=== PATIENT | female | born 1980 | race Caucasian/White ===

== ENCOUNTER 2022-07-25 11:48 | Emergency (ER) | payer OTHER, SELFPAY ==
--- NOTE | ~2022-07-25 | XR_ITS ---
XR toe 5th RT min 2V DATE: 07/25/2022 12:27 INDICATION: Right fifth toe pain following injury today TECHNIQUE: 3 views COMPARISON: None FINDINGS: There is a linear oblique fracture through the proximal shaft of the proximal phalanx of th e fifth toe with no significant displacement, minimal apex anteromedial angulation. No other fracture or dislocation. IMPRESSION: Fracture proximal phalanx Reviewed, dictated and finalized at location A. [employer] IMPRESSION: Fracture proximal phalanx
[2022-07-25 12:13] VITALS: BP 122/79; PULSE 85; RESP 16; TEMP 36.1; O2SAT 99
--- NOTE | 2022-07-25 13:38 | ED.LOWEXIN ---
HPI - Extremity Injury (Lower) General Chief Complaint: Extremity Injury, Lower Stated Complaint: right 5th toe digit Source: patient Mode of arrival: ambulatory Limitations: no limitations History of Present Illness HPI Narrative: 40-year-old female presents to [facility] with complaints of pain, swelling bruising to right 5th toe since 11:15 AM today. Patient reports that her daughter was following her when she turned around and jammed her right foot into a door frame at 11:15 a.m. today. Patient has not tried taking any [id number] medications for symptoms. Patient reported increased pain with ambulation and range of motion. Onset (ago): hour(s) (2) Injury: Right: toes Place: home Other symptoms: none Related Data Home Medications Medication Instructions Recorded Confirmed Xiao 07/25/22 Chewable Probiotic 07/25/22 cholecalciferol (vitamin D3) 07/25/22 gabapentin 300 mg capsule mg 07/25/22 mecobalamin (vitamin B12) 07/25/22 Allergies Allergy/AdvReac Type Severity Reaction Status Date / Time No Known Allergies Allergy Unverified 02/16/14 10:16 Review of Systems Constitutional: Constitutional: Denies chills, Denies fatigue, Denies fever(s) and Denies weakness ENT: Denies vertigo and Denies dizziness Respiratory: Respiratory: Denies cough, Denies dyspnea and Denies wheezing Gastrointestinal: Gastrointestinal: Denies diarrhea, Denies nausea and Denies vomiting Musculoskeletal: Musculoskeletal: Reports arthralgias and Reports joint swelling Comments: Pain, swelling and bruising to right 5th toe Integumentary/Breasts: Skin/Breast: Denies rash PMFSH Comments At time of signature, I agree with nursing past medical, surgical, social and family history. There is no relevant family history pertinent to the presenting complaint. Exam Const: General: healthy appearing and no acute distress Nutritional Appearance: well nourished Orientation/consciousness: patient oriented x3 Limitations: no limitations Neck: Neck: normal visual inspection Resp: Effort & Inspection: normal respiratory effort Auscultation: clear to auscultation bilaterally Cardio: Rate: regular rate Rhythm: regular rhythm Heart sounds: no murmurs Skin: General skin exam: normal color Rashes: no rashes Neuro: General: patient oriented x3 Speech: normal speech Extrem: Other: pain mild bruising and mild swelling noted to right 5th toe, there is increased pain noted with range of motion and palpation to right 5th toe Psych: Affect: normal affect Attitude: cooperative Course Course Level of Care: Express Care Visit Vital Signs Vital signs: Vital Signs Temperature 36.1 C L 07/25/22 12:13 Pulse Rate 85 07/25/22 12:13 Respiratory Rate 16 07/25/22 12:13 Blood Pressure 122/79 07/25/22 12:13 Pulse Oximetry 99 07/25/22 12:13 Oxygen Delivery Room Air 07/25/22 12:13 Temperature 36.1 C L 07/25/22 12:13 Pulse Rate 85 07/25/22 12:13 Respiratory Rate 16 07/25/22 12:13 Blood Pressure 122/79 07/25/22 12:13 Pulse Oximetry 99 07/25/22 12:13 Oxygen Delivery Room Air 07/25/22 12:13 MDM - Extremity Injury (Lower) MDM Narrative Medical decision making narrative: discussed x-ray results with patient. She agrees to call orthopedics tomorrow for an appointment. Right 5th toe was john-taped and postop shoe was applied to right foot. Rice therapy discussed with patient. Patient agrees to alternate Motrin and Tylenol as needed. Differential Diagnosis Differential diagnosis: Likely other ( Contusion, avulsion, abrasion) Imaging Data Radiologist's impression: right 5th toe x-ray -- fracture proximal phalanx per radiologist Critical Care Time Critical Care Time Critical Care Time: No Discharge Plan Discharge Clinical Impression: Fracture of toe of right foot Patient Disposition: Home, Self-Care Condition: Stable Instructions: Toe Fracture (ED) Addit
== END 2022-07-25 13:48 | disposition home or self-care (01) ==
PROVIDERS: Emergency Provider Nurse Practitioner Family
DX: S82.241A Displaced spiral fracture of shaft of right tibia, initial encounter for closed fracture (principal); W22.09XA Striking against other stationary object, initial encounter
CPT/HCPCS: 73660; 99214; G0463

== ENCOUNTER 2022-10-09 12:26 | Emergency (ER) | payer OTHER, SELFPAY ==
[2022-10-09] VITALS (13 sets, daily range): BP systolic 118–151; BP diastolic 66–89; PULSE 69–98; RESP 18–20; TEMP 36.4; O2SAT 96–100
--- NOTE | ~2022-10-09 | CT_ITS ---
EXAMINATION: CT brain wo con DATE: 10/09/2022 17:26 INDICATION: syncope . TECHNIQUE: Computed tomography (CT) of the head was performed without intravenous contrast. The mA wa s adjusted according to patient size. Iterative reconstruction technique was employed. The dose-lengt h product was 605.33 mGy-cm. COMPARISON: None. FINDINGS: No acute intracranial hemorrhage or extra-axial fluid collection. No hydrocephalus, mass, or herniation. No acute ischemic infarct. Unremarkable dural venous sinus attenuation. No acute osseous abnormality. The aerated spaces are clear. IMPRESSION: No acute intracranial process. Reviewed, dictated and finalized at location K.
--- NOTE | 2022-10-09 12:34 | ECG_ITS ---
Measurements Intervals [place] Rate: 94 P: 56 SD: 126 QRS: 24 QRSD: 86 T: 33 QT: 329 QTc: 413 Interpretive Statements SINUS RHYTHM NO PREVIOUS ECG AVAILABLE FOR COMPARISON Electronically Signed On 10-09-2022 15:49:58 CDT by Lex Hernandez M.D.
[2022-10-09 12:51] LABS: Basophils Percent Auto 0.3 % (0.2-1.2); Eosinophils Absolute Auto 0.1 K/mm3 (0-0.3); Eosinophils Percent Auto 0.7 % (0-4.4); Hematocrit 40.6 % (37.0-47.0); Hemoglobin 13.6 g/dL (12.0-15.0); Immature Granulocyte Absolute 0.03 K/mm3 (0.00-0.031); Immature Granulocyte Percent A 0.3 % (0-0.5); Lymphocytes Percent Auto 42.3 % (18.3-44.2); Mean Corpuscular HGB Conc 33.5 g/dl (32-36); Mean Corpuscular Hemoglobin 28.6 pg (26-34); Mean Corpuscular Volume 85.3 fl (80-100); Mean Platelet Volume 10.3 fl (7.4-10.4); Monocytes Absolute Auto 0.6 K/mm3 (0.1-0.6); Monocytes Percent Auto 6.7 % (2.6-8.5); Neutrophils Absolute Auto 4.3 K/mm3 (1.3-6.7); Neutrophils Percent Auto 49.7 % (45.5-73.1); Platelet Count Result 275 k/mm3 (150-375); Red Blood Count 4.76 M/mm3 (4.2-5.4); White Blood Count 8.8 K/mm3 (4.5-10.0)
[2022-10-09 13:09] LABS: Alanine Aminotransferase 29 U/L (6-35); Albumin Level 4.4 g/dL (3.5-5.1); Alkaline Phosphatase 105 U/L (38-126); Anion Gap 11 mmol/L (8-16); Aspartate Amino Transferase 33 U/L (14-36); Bilirubin,Total 0.9 mg/dL (0.2-1.3); Blood Urea Nitrogen 9 mg/dL (7-17); Calcium 8.9 mg/dL (8.4-10.2); Carbon Dioxide 21 mmol/L (22-30); Chloride 108 mmol/L (98-107); Estimated CRCL calculation 124 ml/min; Estimated Glomerular Filt Rate > 60; Glucose 97 mg/dL (65-110); Sodium 140 mmol/L (137-145)
[2022-10-09 14:39] LABS: Potassium 3.8 mmol/L (3.4-5.0)
[2022-10-09 18:28] LABS: Appearance Urine Cloudy (Clear); Bacteria Urine 1+ /hpf; Bilirubin Urine 1+ (Negative); Blood Urine 1+ (Negative); Color Urine Dark Yellow (Yellow); Glucose Urine UA Negative (Negative); Ketones Urine Trace mg/dL (Negative); Leukocyte Esterase Ur 2+ LEU/UL (Negative); Nitrate Urine Negative (Negative); Protein Urine Trace mg/dL (Negative); Specific Grav Ur 1.024 (1.001-1.035); Squamous Epithelial Cell Urine Moderate /hpf (Few); Urobilinogen Urine 0.2 mg/dL (<2.0); WBC Urine 21-50 /hpf
[2022-10-09 18:29] LABS: Add Urine Microscopic? YES
[2022-10-09 18:50] LABS: Troponin I < 0.012 ng/mL (0.000-0.034)
--- NOTE | 2022-10-09 18:56 | ED.SYNCOPE ---
HPI - Syncope General Chief Complaint: Syncope Stated Complaint: syncopal episode last night Time Seen by Provider: 10/09/22 16:30 Source: patient and family Mode of arrival: ambulatory Limitations: no limitations History of Present Illness HPI narrative: 42-year-old otherwise healthy female with complaints of dizzy spell yesterday patient states that while she was in the shower felt faint afterwards, she was unable to keep her balance she states that her checked her blood pressure in both arms it was low compared to her normal, somehow dragged herself to the bed and slept till 12:00 this afternoon. She denies having chest pain or palpitations or shortness of breath however she has been having pain in the right side of her jaw for last 4 to 5 days has seen a dentist for that. No previous history of fainting spells. She denies any abdominal pain, nausea or vomiting or diarrhea. No blood per rectum Related Data Home Medications Medication Instructions Recorded Confirmed Xiao 07/25/22 Chewable Probiotic 07/25/22 cholecalciferol (vitamin D3) 07/25/22 gabapentin 300 mg capsule mg 07/25/22 mecobalamin (vitamin B12) 07/25/22 Allergies Allergy/AdvReac Type Severity Reaction Status Date / Time No Known Allergies Allergy Unverified 10/09/22 12:27 Review of Systems Review of Systems: All systems reviewed & are unremarkable except as noted in HPI and below Constitutional: Constitutional: Reports no additional constitutional complaints Eyes: Eyes: Reports no additional eye complaints ENT: Reports system reviewed and no additional complaints, except as documented Cardiovascular: Cardiovascular: Reports no additional cardiovascular complaints Respiratory: Respiratory: Reports no additional respiratory complaints Genitourinary: Genitourinary: Reports no additional female genitourinary complaints Musculoskeletal: Musculoskeletal: Reports no additional musculoskeletal complaints Integumentary/Breasts: Skin/Breast: Reports system reviewed and no additional complaints, except as docu Neurologic: Reports system reviewed and no additional complaints, except as documented Exam Narrative: GENERAL: Well-appearing, well-nourished, and in no acute distress. HEAD: Normocephalic, atraumatic. EYES: PERRLA and EOMI. ENT: Nares clear, no rhinorrhea or epistaxis. Mucous membranes moist. NECK: Supple. CHEST: Clear to auscultation. No respiratory distress. HEART: Regular rate and rhythm. No murmur heard. Normal peripheral pulses. ABDOMEN: Soft, nontender, nondistended, normal active bowel sounds. EXTREMITIES: Normal range of motion. No edema. SKIN: Warm, dry, no rash. NEURO: No focal deficits. Alert and oriented x3. PSYCH: Normal mood and affect. Course Course Emergency Course: Patient does not orthostatic her physical exam is unremarkable so is her EKG she has presently no complaints except for right jaw pain which has been ongoing. I did inform her about her lab work, CT and EKG findings. Cause of her syncope could be vasovagal syncope. Recommended her to follow-up with her primary Vital Signs Vital signs: Vital Signs Temperature 36.4 C 10/09/22 12:28 Pulse Rate 98 10/09/22 12:28 Respiratory Rate 18 10/09/22 12:28 Blood Pressure 139/76 10/09/22 12:28 Pulse Oximetry 98 10/09/22 12:28 Oxygen Delivery Room Air 10/09/22 12:28 Temperature 36.4 C 10/09/22 12:28 Pulse Rate 95 10/09/22 18:07 Respiratory Rate 18 10/09/22 17:48 Blood Pressure 128/66 10/09/22 18:07 Pulse Oximetry 100 10/09/22 17:48 Oxygen Delivery Room Air 10/09/22 17:45 MDM - Syncope MDM Narrative Medical decision making narrative: 42-year-old otherwise healthy here with complaints of syncopal episode yesterday after shower she presently has no complaints . We will do cardiac work-up and CT of the head. Differential Diagnosis Differential diagnosis: Likely syncope due to orthostatic hypotensio
== END 2022-10-09 19:10 | disposition home or self-care (01) ==
PROVIDERS: Emergency Medicine; Emergency Provider Family Medicine
DX: R55 Syncope and collapse (principal); R68.84 Jaw pain
CPT/HCPCS: 36415; 70450; 80053; 81001; 84484; 85025; 87086; 87088; 93005; 99284